=== PATIENT | male | born 1940 | race Caucasian/White ===

== ENCOUNTER 2022-05-26 13:13 | Emergency (ER) | payer MEDICARE ==
[2022-05-26] MEDS ORDERED: Diphtheria,Pertussis(Acell),Tetanus Vaccine 0.5 ML Syringe IM ONE (15:48)
[2022-05-26] MEDS ORDERED: Lidocaine 1% 5 ML VIAL INJECT ONE (15:48)
[2022-05-26] MEDS ORDERED: Bacitracin Oint 1 GM U/D Packet TOP ONE (15:48)
== END 2022-05-26 16:39 | disposition home or self-care (01) ==
LOC: JP.ED 13:13
DX: S61.012A Laceration without foreign body of left thumb without damage to nail, initial encounter (principal); I25.10 Atherosclerotic heart disease of native coronary artery without angina pectoris; E78.00 Pure hypercholesterolemia, unspecified; I10 Essential (primary) hypertension; Z95.0 Presence of cardiac pacemaker; Z86.73 Personal history of transient ischemic attack (TIA), and cerebral infarction without residual deficits; Z88.5 Allergy status to narcotic agent; Z23 Encounter for immunization; W26.8XXA Contact with other sharp object(s), not elsewhere classified, initial encounter
CPT/HCPCS: 12002; 90471; 90715; 99282-25